=== PATIENT | female | born 1960 | race Caucasian/White ===

== ENCOUNTER 2020-12-27 13:45 | Outpatient (RCR) | payer OTHER, SELFPAY ==
[2017-03-28 08:14] VITALS: BMI 30.7
== END 2021-03-11 23:59 ==
LOC: IMMUN 13:45
PROVIDERS: PCP Physician Assistant; Visit Provider Family Medicine
DX: Z23 Encounter for immunization (principal)
CPT/HCPCS: 0001A; 0002A; 91300